=== PATIENT | female | born 1985 | race Caucasian/White ===

== ENCOUNTER 2020-03-18 11:37 | Emergency (ER) | payer BC, OTHER ==
[~2020-03-18] VITALS: Ht 160 cm; Wt 79.3 kg
[2020-03-18] MEDS ORDERED: ATOR1TAB19 PO (11:49)
[2020-03-18] MEDS ORDERED: METO1TAB7 PO (11:49)
[2020-03-18] MEDS ORDERED: ESCI10TA2 PO (11:49)
[2020-03-18] MEDS ORDERED: HYDR25TAB PO (11:49)
[2020-03-18 12:20] LABS: BASO # 0.1 10^3/uL (0.0-0.2); BASO % 0.5 % (0.0-1.0); EOS # 0.4 10^3/uL (0.0-0.5); EOS % 3.3 % (0.0-3.0); HEMATOCRIT 36.5 % (36.0-47.0); HEMOGLOBIN 12.2 g/dl (12.0-15.5); LYMPH # 3.6 10^3/uL (1.5-5.0); LYMPH % 31.2 % (24.0-44.0); MEAN CORPUSCULAR HEMOGLOBIN 29.5 pg (27.0-33.0); MEAN CORPUSCULAR HGB CONC 33.4 g/dl (32.0-36.5); MEAN CORPUSCULAR VOLUME 88.4 fl (80.0-96.0); MONO # 0.6 10^3/uL (0.0-0.8); MONO % 4.8 % (0.0-5.0); NEUTROPHILS # 6.9 10^3/uL (1.5-8.5); NEUTROPHILS % 59.9 % (36.0-66.0); PLATELET COUNT, AUTOMATED 216 10^3/uL (150-450); RED BLOOD COUNT 4.13 10^6/uL (4.00-5.40); WHITE BLOOD COUNT 11.6 10^3/uL (4.0-10.0)
[2020-03-18] MEDS ORDERED: TRAZ-252 PO (12:22)
--- NOTE | 2020-03-18 12:29 | REP ---
INDICATION: CHEST PAIN COMPARISON: 06/14/2008 TECHNIQUE: AP portable seated chest FINDINGS: The lungs are well inflated. Subtle patchy density over the left lateral base noted. This could be patchy atelectasis or infiltrate no pleural effusion. The right lung is clear. The heart, mediastinal and hilar contours are normal. The aorta and airway intact. There is subtle dextroconvex curvature of the upper thoracic spine centered at T4. No free air under the diaphragm IMPRESSION: 1. Subtle patchy zone of atelectasis or early infiltrate left lateral base without dense consolidation or air bronchograms. No pleural effusion. Right lung clear. 2. The heart, mediastinal and hilar contours unremarkable. 3. Bony thorax with minor dextroconvex curve upper thoracic spine centered at T4. <Electronically signed by Too Mcgrath > 03/18/20 [id number]
[2020-03-18] MEDS ORDERED: ISOVUE-370 76% 100ML VIAL As Ordered ONE (12:59)
--- NOTE | 2020-03-18 13:28 | REP ---
INDICATION: left chest pain r/o PE. COMPARISON: AP portable chest today TECHNIQUE: CT angiogram chest performed following the intravenous administration of 100 cc of Isovue 370. Sagittal and coronal reconstruction images are performed. FINDINGS: Lungs: Are well inflated there is only minimal dependent atelectatic changes posteriorly in the lower lung zones. Subtle of patchy density over the left base radiographically likely superimposed chest wall tissues. There is no infiltrate or atelectasis. No pulmonary nodule or parenchymal mass. No effusion or pneumothorax. Mediastinum: No adenopathy. Pulmonary arteries: No evidence of pulmonary embolism. Mere: No adenopathy. Axilla: No adenopathy. Pleura: No effusion. Heart: Not enlarged. Thoracic aorta: No aneurysm or dissection. Upper abdominal structures: Demonstrates some fatty liver change without biliary dilatation. Prior cholecystectomy. Chronic severe atrophy right kidney with extrarenal pelvis. There is a calcification in upper pole pyramid on the left kidney which is otherwise normal in appearance spleen grossly unremarkable. No hiatal hernia. Visualized pancreas intact. Visualized osseous structures: Unremarkable. IMPRESSION: No CT evidence of pulmonary No infiltrate, effusion, parenchymal lung mass mediastinal or hilar abnormality no other acute chest finding. Some fatty liver change but the liver seen incompletely. Prior cholecystectomy. No biliary dilatation. Pancreas unremarkable. Chronic severe atrophy right kidney with cortical thinning. Extrarenal pelvis. <Electronically signed by Too Mcgrath > 03/18/20 [id number]
[2020-03-18 14:45] VITALS: BP 147/95
--- NOTE | 2020-03-19 11:36 | ECGEPIP ---
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
--- NOTE | 2020-03-19 11:38 | ECGEPIP ---
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
--- NOTE | 2020-03-19 13:56 | ED PDOC ---
Post-Departure Follow-Up cta chest faxed to [facility] and dr salazar for fu Raul Lynch MD Mar 19, 2020 13:56
--- NOTE | 2020-03-19 13:58 | ED PDOC ---
Post-Departure Follow-Up cxr faxed to [facility] for fu Raul Lynch MD Mar 19, 2020 13:58
== END 2020-03-18 14:45 | disposition home or self-care (01) ==
LOC: M ED 11:37
DX: I15.0 Renovascular hypertension (principal); I70.1 Atherosclerosis of renal artery; N26.1 Atrophy of kidney (terminal); R07.89 Other chest pain; Z88.2 Allergy status to sulfonamides; Z79.899 Other long term (current) drug therapy; Z87.442 Personal history of urinary calculi; Z82.49 Family history of ischemic heart disease and other diseases of the circulatory system
CPT/HCPCS: 71045; 71275; 80047; 84484; 85025; 93005; 93041; 94760; 99285; Q9967

== ENCOUNTER → 2020-04-07 | Outpatient (REF) | payer BC, OTHER ==
[~2020-04-07] MED LIST: ATOR1TAB19 PO; ESCI10TA2 PO; HYDR25TAB PO; METO1TAB7 PO; TRAZ-252 PO
[2020-04-07 18:44] LABS: PERCENT SATURATION 18.8 % (13.2-45.0)
== END ==
LOC: M LAB REF 16:56
PROVIDERS: ATTEND Internal Medicine Nephrology
DX: N18.9 Chronic kidney disease, unspecified (principal); D63.1 Anemia in chronic kidney disease; I12.9 Hypertensive chronic kidney disease with stage 1 through stage 4 chronic kidney disease, or unspecified chronic kidney disease

== ENCOUNTER → 2020-04-16 | Outpatient (CLI) | payer BC, OTHER ==
--- NOTE | 2020-04-16 08:03 | REP ---
INDICATION: CKD STAGE 3B, ATROPHY OF KIDNEY. COMPARISON: Comparison is made with imaging from CT study of the chest March 18, 2020. This shows significant atrophy of the right kidney at the bottom of the imaging field of view. The renal artery origins are not included in the field of view of that study. And no other comparison exam.. TECHNIQUE: Two-dimensional urinary tract sonography with renal artery Doppler assessment. FINDINGS: The urinary bladder is largely empty at the time of scanning.. Renal cortical echogenicity pattern is increased on the right kidney consistent with chronic medical renal disease. Cortical echogenicity pattern is normal of the left kidney. The right kidney is atrophic as seen on recent CT study. Right renal dimensions are 9.2 x 5.2 x 4.4 cm. The left kidney dimensions are 13.3 x 7.2 x 5.8 cm. There is a small subcentimeter cyst in the right mid kidney. The left kidney demonstrates hyperechoic renal medullary tissue question medullary sponge kidney. No shadowing calculus is appreciated. No other morphologic abnormality is seen.. Renal Doppler sonography: Peak systolic flow velocity in the abdominal aorta at the level of main renal arteries is measured at 125 centimeters/second. This is normal. Main renal arteries are obscured by bowel gas bilaterally. There is a contrast enhancement seen in a portion of each renal artery on the CT study at the bottom of the imaging field of view indicating that they are patent although there origins are not included. Peak systolic flow velocity at the level of the renal high hilar vessels is normal 97 centimeters/second on the left and 66 centimeters/second on the right. Resistive indices and acceleration times are measured in the upper mid and lower pole intralobar arteries of the left kidney and these values are normal. On the right, we were unable to document arterial flow in the intralobar vessels consistent with decreased flow state. IMPRESSION: Increased cortical echogenicity and atrophy of the right kidney. Increased echogenicity in the renal medullary soft tissues of the left kidney question medullary sponge kidney versus dehydration affect. Unable to directly visualize the main renal arteries. Suspect a low-flow state in the intralobar arteries of the right kidney. High degree of suspicion for right renal artery stenosis despite technical difficulties. Consider catheter angiography versus is CT or MR angiography.. <Electronically signed by Gomez Augustin > 04/16/20 [id number]
== END ==
LOC: M RAD 06:31
PROVIDERS: ATTEND Internal Medicine Nephrology
DX: N18.32 Chronic kidney disease, stage 3b (principal); I12.9 Hypertensive chronic kidney disease with stage 1 through stage 4 chronic kidney disease, or unspecified chronic kidney disease; N26.1 Atrophy of kidney (terminal); N28.1 Cyst of kidney, acquired

== ENCOUNTER → 2020-07-18 | Outpatient (CLI) | payer BC, OTHER ==
[~2020-07-18] MED LIST changes: +ESCI10TA16 PO; -ESCI10TA2 PO; +HYDR-3490 PO; -HYDR25TAB PO
--- NOTE | 2020-07-18 10:34 | REP ---
INDICATION: CKD STAGE 3 A. COMPARISON: Ultrasound 04/16/2020. TECHNIQUE/RADIOTRACER AND DOSE: Following the intravenous administration of 8.8 mCi technetium 99 M Mag 3, immediate flow images and delayed function images are performed in the posterior projection for 30 minutes. FINDINGS: There is poor perfusion of the right kidney. There is excellent perfusion of the left kidney. Diffuse homogeneous cortical uptake is seen throughout the left kidney. The right kidney demonstrates atrophy with mild low-level cortical uptake. There is excellent clearance of radiotracer in excretion on the left. There is slow cortical clearance on the right. Split function is 92.8% on the left and 7.2% on the right. Time to peak is normal on the left at 2 minutes and delayed on the right at 7 minutes. T1 half on the left is normal at 11.7 minutes and delayed on the right at 21.9 minutes. Renal function curve is normal for the left kidney. Renal function curve for the right kidney demonstrates low amplitude and a mildly decreasing slope. There is very mild postvoid residual in the urinary bladder after voiding. IMPRESSION: Poor perfusion right kidney. Decreased function of atrophic right kidney. No evidence of hydronephrosis or urinary tract obstruction. Normal left renal perfusion and function. <Electronically signed by Ryan Chiu > 07/18/20 1225
== END ==
LOC: M RAD 07:43
PROVIDERS: ATTEND Internal Medicine Nephrology
DX: N18.31 Chronic kidney disease, stage 3a (principal); I12.9 Hypertensive chronic kidney disease with stage 1 through stage 4 chronic kidney disease, or unspecified chronic kidney disease
CPT/HCPCS: 78707; A9562

== ENCOUNTER → 2020-07-30 | Outpatient (REF) | payer OTHER | LOC: M LAB REF 16:38 | PROVIDERS: ATTEND Internal Medicine Nephrology | DX: Z87.442 Personal history of urinary calculi (principal) ==

== ENCOUNTER → 2020-11-12 | Outpatient (REF) | payer OTHER | LOC: M LAB REF 16:51 | PROVIDERS: ATTEND Internal Medicine Nephrology | DX: R10.84 Generalized abdominal pain (principal) ==

== ENCOUNTER → 2021-02-11 | Outpatient (REF) | payer OTHER | LOC: M LAB REF 17:39 | PROVIDERS: ATTEND Internal Medicine Nephrology | DX: N18.32 Chronic kidney disease, stage 3b (principal) ==

== ENCOUNTER → 2021-02-20 | Outpatient (CLI) | payer BC, OTHER ==
--- NOTE | 2021-02-20 19:12 | REP ---
INDICATION: CKD 3B, ATROPHY OF KIDNEY COMPARISON: 04/16/2020 TECHNIQUE: Real time whiteside scale ultrasound examination using curved array transducer. FINDINGS: Right kidney is atrophic and measures 8.5 x 3.4 x 4.4 cm with increased parenchymal echogenicity and increased central sinus fat. No hydronephrosis, nephrolithiasis, cystic or renal mass lesion. Left kidney demonstrates compensatory enlargement measuring 12.9 x 4.2 x 6.2 cm and appears normal in echogenicity without hydronephrosis, nephrolithiasis, cystic or renal mass lesion. Bladder is normal in appearance with bilateral ureteral jets identified. IMPRESSION: 1. Atrophic right kidney. Relatively normal left kidney. <Electronically signed by Jamaal Marley > 02/20/21 [id number]
== END ==
LOC: M RAD 16:01
PROVIDERS: ATTEND Internal Medicine Nephrology
DX: N18.32 Chronic kidney disease, stage 3b (principal)

== ENCOUNTER → 2021-05-20 | Outpatient (REF) | payer BC, OTHER | LOC: M LAB REF 13:14 | PROVIDERS: ATTEND Nurse Practitioner Family | DX: Z87.442 Personal history of urinary calculi (principal) ==

== ENCOUNTER → 2021-09-23 | Outpatient (CLI) | payer BC, OTHER | LOC: M RAD 13:09 | PROVIDERS: ATTEND Nurse Practitioner Family | DX: N18.32 Chronic kidney disease, stage 3b (principal); N26.1 Atrophy of kidney (terminal); Z87.442 Personal history of urinary calculi ==

== ENCOUNTER → 2022-08-25 | Outpatient (CLI) | payer BC, OTHER | LOC: M RAD 09:44 | PROVIDERS: ATTEND Nurse Practitioner Family | DX: Z87.442 Personal history of urinary calculi (principal) ==

== ENCOUNTER → 2022-12-30 | Outpatient (CLI) | payer BC, OTHER | LOC: M RAD 12:51 | PROVIDERS: ATTEND Nurse Practitioner Family | DX: M54.6 Pain in thoracic spine (principal); M54.50 Low back pain, unspecified; N18.32 Chronic kidney disease, stage 3b ==

== ENCOUNTER → 2023-08-02 | Outpatient (CLI) | payer OTHER ==
[~2023-08-02] MED LIST changes: +LEXA1TAB PO
== END ==
LOC: M WHC 12:03
PROVIDERS: ATTEND Family Medicine
DX: Z12.31 Encounter for screening mammogram for malignant neoplasm of breast (principal)

== ENCOUNTER → 2023-11-01 | Outpatient (CLI) | payer BC | LOC: M WHC 09:47 | PROVIDERS: ATTEND Advanced Practice Midwife | DX: N92.0 Excessive and frequent menstruation with regular cycle (principal); Z12.31 Encounter for screening mammogram for malignant neoplasm of breast ==

== ENCOUNTER 2024-01-09 08:33 | Day surgery (SDC) | payer BC ==
[~2024-01-09] VITALS: Ht 160 cm; Wt 75.3 kg
[~2024-01-09 08:33] MED LIST changes: +AMLO1TAB24 PO; +ATOR1TAB21 PO; +CETI10CA13 PO; +FURO20TA2 PO; +KETAMINE HCL 200MG/20ML VIAL As Ordered ONE; +LEXA1TAB2 PO; +SEMA0.5P
[2024-01-09] MEDS ORDERED: propofoL 200 MG/20 ML VIAL As Ordered ONE (09:04)
[2024-01-09] MEDS ORDERED: ROCURONIUM BROMIDE 50MG/5ML VIAL As Ordered ONE (09:04)
[2024-01-09] MEDS ORDERED: LIDOCAINE 2% 100MG/5ML SDV (FOR ANES.) As Ordered ONE (09:05)
[2024-01-09] MEDS ORDERED: KETOROLAC 60MG 2ML VIAL As Ordered ONE (09:05)
[2024-01-09] MEDS ORDERED: SUGAMMADEX SODIUM 500 MG/5 ML VIAL (BRIDION) As Ordered ONE (09:05)
[2024-01-09] MEDS ORDERED: ONDANSETRON 4MG 2ML VIAL As Ordered ONE (09:05)
[2024-01-09] MEDS ORDERED: ACETAMINOPHEN 1000MG 100ML IV BAG As Ordered ONE (09:05)
[2024-01-09] MEDS ORDERED: MIDAZOLAM INJ 2MG/2ML VIAL As Ordered ONE (09:06)
[2024-01-09] MEDS ORDERED: fentaNYL 100 MCG/2 ML INJECTION As Ordered ONE (09:06)
[2024-01-09 09:17] LABS: HEMATOCRIT 34.3 % (36.0-47.0); HEMOGLOBIN 11.8 g/dl (12.0-15.5); MEAN CORPUSCULAR HEMOGLOBIN 30.2 pg (27.0-33.0); MEAN CORPUSCULAR HGB CONC 34.4 g/dl (32.0-36.5); MEAN CORPUSCULAR VOLUME 87.7 fl (80.0-96.0); PLATELET COUNT, AUTOMATED 256 10^3/uL (150-450); RED BLOOD COUNT 3.91 10^6/uL (4.00-5.40); WHITE BLOOD COUNT 13.1 10^3/uL (4.0-10.0)
[2024-01-09] MEDS ORDERED: LR 1,000 ML IV SCH ×2 (09:25→12:10)
[2024-01-09] MEDS: ceFAZolin SOD 2 GM in IV 1 EA IV ONE (10:28)
[2024-01-09] MEDS ORDERED: diphenhydrAMINE 50MG/ML VIAL IV PRN (12:10)
[2024-01-09] MEDS ORDERED: METOCLOPRAMIDE INJ 10MG/2ML VIAL IV PRN (12:10)
[2024-01-09] MEDS ORDERED: fentaNYL 100 MCG/2 ML INJECTION IV PRN (12:10)
[2024-01-09] MEDS ORDERED: MEPERIDINE 25 MG/ML 1ML VIAL IV PRN (12:10)
[2024-01-09] MEDS: HYDROMORPHONE HCL 0.5 MG/ 0.5 ML SYRINGE IV PRN (12:42)
[2024-01-09] MEDS: ONDANSETRON 4MG 2ML VIAL IV PRN (12:42)
[2024-01-09] MEDS: oxyCODONE 5MG TAB PO PRN (13:12)
[2024-01-09 13:48] VITALS: BP 110/65; TEMP 97.5; O2SAT 96
== END 2024-01-09 14:39 | disposition home or self-care (01) ==
LOC: M SDC 08:33
PROVIDERS: ATTEND Obstetrics & Gynecology
DX: N93.9 Abnormal uterine and vaginal bleeding, unspecified (principal); N88.8 Other specified noninflammatory disorders of cervix uteri; K66.0 Peritoneal adhesions (postprocedural) (postinfection); I12.9 Hypertensive chronic kidney disease with stage 1 through stage 4 chronic kidney disease, or unspecified chronic kidney disease; E78.00 Pure hypercholesterolemia, unspecified; N18.9 Chronic kidney disease, unspecified; Z79.899 Other long term (current) drug therapy; Z88.2 Allergy status to sulfonamides; F17.210 Nicotine dependence, cigarettes, uncomplicated; L30.9 Dermatitis, unspecified
CPT/HCPCS: 36415; 58571; 81025; 85027; 86850; 86900; 86901; 88307; J0131; J0665; J0690; J1100; J1170; J1885; J2250; J2405; J3010; S2900

== ENCOUNTER → 2024-01-27 | Outpatient (REF) | payer OTHER ==
[~2024-01-27] MED LIST changes: -KETAMINE HCL 200MG/20ML VIAL As Ordered ONE
== END ==
LOC: M LAB REF 17:06
PROVIDERS: ATTEND Nurse Practitioner Family
DX: N39.0 Urinary tract infection, site not specified (principal)